=== PATIENT | female | born 1985 | race Caucasian/White ===

== ENCOUNTER → 2016-04-17 | Outpatient (CLI) | payer BC ==
--- NOTE | ~2016-04-17 | US24 ---
[facility] A Service of [facility] & [facility] RADIOLOGY TEXT RESULTS PATIENT: ARELI CEBALLOS LOCATION: [facility] : 85 UNIT #: [id number] AGE: [address]: NICKO HILARIO MD SEX: F ORDER DR: [id number] [address] [place], [place] [address] [id number] O MR#: [id number] Acc #: [id number] NAME: ARELI CEBALLOS : 1985 SEX: F STUDY DATE/TIME: 04/17/2016 12:36 UNIT: [facility] ROOM: STUDY DESCRIPTION: US Breast Unilateral Attending Physician: Nicko Hilario M.D. Ordering Physician: Nicko Hilario M.D. Primary Care Physician: Nicko Hilario M.D. MEDICAL IMAGING REPORT This report is preliminary unless electronic signature is present EXAM Target ultrasound, right breast. DATE OF EXAM 04/17/2016 INDICATIONS 31-year-old female complaining of asymmetrically prominent breast tissue in the upper outer quadrant right breast for the past 2 weeks. No personal or family history of breast cancer. TECHNIQUE Targeted ultrasound of the area patient's palpable concern was performed. COMPARISON There are no comparisons. FINDINGS RIGHT BREAST: The patient was initially scanned independently by the technologist, and then rescanned in my presence. Limited physical exam (with the patient's consent) was also performed here in the department, and demonstrates a ridge of what appears to represent dense breast tissue on exam. Ultrasound of the area was performed from the 9 o'clock to the 10 o'clock positions. Imaging demonstrates prominent dense breast tissue in the area of patient palpable concern but there is no solid or cystic mass or persistent area of abnormal shadowing. Targeted ultrasound of the asymptomatic left breast was also performed (images were not saved to the PACS system) demonstrates similar appearing, dense breast tissue in the same quadrant of the left breast. Absent new or worsening symptoms in either breast, the patient should plan on beginning a screening mammography regimen at age 40, or sooner based upon risk factors. Findings and recommendations were discussed with the [facility] A Service of [facility] & [facility] RADIOLOGY TEXT RESULTS PATIENT: ARELI CEBALLOS LOCATION: [facility] : 85 UNIT #: [id number] AGE: [address]: NICKO HILARIO MD SEX: F ORDER DR: patient. She voiced understanding and agreement. IMPRESSION There is dense breast tissue in the area of patient's palpable concern in the upper/outer quadrant right breast. Similar findings also present in the contralateral asymptomatic left breast. Clinical considerations to determine additional imaging at this time. See discussion above. Patients over the age of 40 are entered into a reminder system with target due date for the next mammogram. A result letter will also be sent to the patient. BIRADS: 1 Negative. Dictated by... Santana Sumner M.D. THIS IS AN ELECTRONICALLY VERIFIED REPORT Santana Sumner M.D. at 04/17/2016 5:06 PM Jina TD: 04/17/2016 16:18 JOB #: [id number] MEDICAL IMAGING REPORT COPY
== END | disposition home or self-care (01) ==
LOC: CWCC 12:15
DX: N60.01 Solitary cyst of right breast (principal)
CPT/HCPCS: 76641